=== PATIENT | female | born 1975 | race Caucasian/White ===

== ENCOUNTER → 2023-12-23 15:29 | Outpatient (REF) | payer OTHER, SELFPAY | LOC: HWWDC 15:29 | PROVIDERS: ATTENDING PHYSICIAN Obstetrics & Gynecology; FAMILY PHYSICIAN Family Medicine | DX: Z12.31 Encounter for screening mammogram for malignant neoplasm of breast (principal) | CPT/HCPCS: 77063; 77067 ==

== ENCOUNTER → 2024-01-03 08:12 | Outpatient (REF) | payer OTHER, SELFPAY | LOC: WDC 08:12 | PROVIDERS: ATTENDING PHYSICIAN Obstetrics & Gynecology; FAMILY PHYSICIAN Family Medicine | DX: R92.8 Other abnormal and inconclusive findings on diagnostic imaging of breast (principal) | CPT/HCPCS: 76642; 77065 ==

== ENCOUNTER → 2024-01-05 07:30 | Outpatient (REF) | payer OTHER, SELFPAY ==
--- NOTE | 2024-01-05 10:24 | OID.BR.INTR ---
[facility] Breast Navigator - Initial
- -
Date of Contact: 01/05/24
Met with patient. Patient given written information on navigator services available at [facility]. Will follow up as needed per protocol.
== END ==
LOC: WDC 07:30
PROVIDERS: ATTENDING PHYSICIAN Obstetrics & Gynecology; FAMILY PHYSICIAN Family Medicine
DX: R92.1 Mammographic calcification found on diagnostic imaging of breast (principal)
CPT/HCPCS: 88305; 19081; 76098; A4648

== ENCOUNTER → 2024-01-24 09:00 | Outpatient (REF) | payer OTHER, SELFPAY | LOC: HWRAD 09:00 | PROVIDERS: ATTENDING PHYSICIAN Family Medicine | DX: R10.84 Generalized abdominal pain (principal) | CPT/HCPCS: 76700; 76830; 76856 ==

== ENCOUNTER → 2024-03-01 08:13 | Outpatient (REF) | payer OTHER, SELFPAY | LOC: WDC 08:13 | PROVIDERS: ATTENDING PHYSICIAN Surgery | DX: N60.99 Unspecified benign mammary dysplasia of unspecified breast (principal) | CPT/HCPCS: 19281; A4648 ==

== ENCOUNTER 2024-03-02 06:15 | Day surgery (SDC) | payer OTHER, SELFPAY ==
[2024-02-21 08:48] VITALS: BMI 23.8
[2024-02-21 08:49] LABS: Hematocrit 38.2 % (37.0-47.0); Hemoglobin 13.2 g/dL (12.0-16.0); Mean Corp Hgb Conc. 34.6 g/dL (33.0-37.0); Mean Corpuscular Hgb 31.4 pg (27.0-31.0); Mean Platelet Volume 10.9 fL (7.4-10.4); Platelet Count 263 10^3/uL (130-400); Red Cell Dist. Width 12.5 % (11.5-14.5); White Blood Cell Count 5.1 10^3/uL (4.8-10.8)
[2024-02-21 09:26] LABS: ALT (SGPT) 18 U/L (0-35); AST (SGOT) 23 U/L (14-36); Albumin 4.2 g/dl (3.5-5.0); Alkaline Phosphatase 35 U/L (38-126); Blood Urea Nitrogen 11 mg/dl (7-17); Carbon Dioxide 25 mmol/L (22-30); Chloride 102 mmol/L (98-107); Estimated Creatinine Clearance 94 ml/min; Glucose 96 mg/dl (70-99); Potassium 4.4 mmol/L (3.5-5.1); Sodium 138 mmol/L (135-145); Total Bilirubin 0.7 mg/dl (0.2-1.3); Total Protein 6.7 g/dl (6.3-8.2); eGFR > 60.00
[2024-02-21 09:31] LABS: Prealbumin (Transthyretin) 33.4 mg/dl (17.6-36.0)
[2024-02-21 09:43] LABS: Vitamin D, 25-OH*** 53.1 ng/mL (30-80)
[2024-03-02 07:49] VITALS: BMI 23.8
[2024-03-02] MEDS: TYLENOL 1000 MG PO (07:50)
[2024-03-02 07:52] VITALS: BP 133/80
[2024-03-02 09:52] VITALS: BP 120/65
[2024-03-02 10:00] VITALS: BP 114/60
[2024-03-02 10:15] VITALS: BP 115/74
[2024-03-02 10:25] VITALS: BP 123/74
[2024-03-02 10:30] VITALS: BP 119/73
== END 2024-03-02 10:48 | disposition home or self-care (01) ==
LOC: SDS 06:15
PROVIDERS: ATTENDING PHYSICIAN Surgery; FAMILY PHYSICIAN Family Medicine
DX: N60.11 Diffuse cystic mastopathy of right breast (principal); N60.41 Mammary duct ectasia of right breast; N60.89 Other benign mammary dysplasias of unspecified breast
CPT/HCPCS: 19301; 88305; 88307; 76098; 80053; 82306; 84134; 85027; 88341; 88342; 93005; A4648

== ENCOUNTER → 2024-07-24 07:15 | Outpatient (REF) | payer OTHER, SELFPAY | LOC: PAVMRI 07:15 | PROVIDERS: ATTENDING PHYSICIAN Physician Assistant; FAMILY PHYSICIAN Family Medicine | DX: M54.16 Radiculopathy, lumbar region (principal) | CPT/HCPCS: 72148 ==

== ENCOUNTER → 2024-12-18 09:07 | Outpatient (REF) | payer OTHER, SELFPAY | LOC: WDC 09:07 | PROVIDERS: ATTENDING PHYSICIAN Surgery; FAMILY PHYSICIAN Family Medicine | DX: N63.0 Unspecified lump in unspecified breast (principal) | CPT/HCPCS: 76642; 77062; 77066 ==